=== PATIENT | female | born 1940 | race Caucasian/White ===

== ENCOUNTER → 2017-12-31 | Outpatient (CLI) | payer MEDICARE ==
--- NOTE | 2018-01-01 23:57 | BD ---
EXAMINATION TYPE: MG DEXA axial skeleton. DATE OF EXAM: 12/31/2017 COMPARISON: 04.12.2012 DEXA bone scan. CLINICAL HISTORY: 77 YR OLD FEMALE.....ICD-10 CODE: M81.0 AGE RELATED OSTEOPOROSIS Height: 60 Weight: 135 FRAX RISK QUESTIONS: Alcohol (3 or more units per day): NO Family History (Parent hip fracture): HER MATERNAL AUNT Glucocorticoids (More than 3mos): NO (Ex: prednisone, prednisolone, methylprednisolone, dexamethasone, and hydrocortisone). History of Fracture in Adulthood: YES Secondary Osteoporosis: YES 1. Type 1 Diabetes: NO 2. Hyperthyroidism: NO 3. Menopause before 45: AT 44 4. Malnutrition: NO 5. Chronic liver disease: NO Rheumatoid Arthritis: NO Current Tobacco Use: NO RISK FACTORS HISTORY OF: Spine Fracture: THORACIC SPINE....COMP FX..AT 75 YRS OLD History of Wrist Fracture: RT WRIST AT 73 YRS OLD Surgery to LT HIP REPLACEMENT AT 71 YRS OLD Family History of Osteoporosis: MATERNAL AUNT, WITH BROKEN HIP Active: NOT NOW, SINCE BACK FX Diet low in dairy products/other sources of calcium: YES Postmenopausal woman: HYST AT 44 YRS OLD Take estrogen and/or progesterone medications: IN THE PAST FOR MANY YRS, NONE NOW Lost more than 2 inches in height since high school: NO Hyperparathyroidism: NO Adrenal Insufficiency: NO MEDICATIONS: Osteoporosis Medications: IN PAST MANY DIFF TYPES, LAST TAKEN 2010 Additional Medications: REFLUX MEDS, CALCIUM AND VIT D....ON AND OFF Additional History: OSTEOARTHRITIS, SCOLIOSIS EXAM MEASUREMENTS: Bone mineral densitometry was performed using the [employer] System. Bone mineral density as measured about the Lumbar spine is: ----- L1-L4(G/cm2): 0.961 T Score Values are as follows: ----- L1: -0.8 ----- L2: -1.9 ----- L3: -2.0 ----- L4: -2.5 ----- L1-L4: -1.8 Bone mineral density has: Increased 4.2% since study of: 03.25.2012 Bone mineral density about the R hip (g/cm2): 0.807 T Score values are as follows: -----R Neck: -2.4 ----R Total: -1.6 Bone mineral density has: Decreased -3.5% since study of: 03.25.2012 FRAX%S: THERE IS A 25.0% CHANCE OF A MAJOR OSTEOPOROTIC FX AND A 7.6% FOR HIP FX....PROBABILITY OF FX IN 10 YRS TIME IMPRESSION: Osteopenia (T Score between -2.5 and -1) remains present in right hip and low back. There remains slightly increased risk of fracture and the patient may be considered for treatment. Re-Screen 2-5 years. NOTE: T-SCORE=SD OF THE YOUNG ADULT MEAN.
== END ==
LOC: RADBDWWP 12:24
PROVIDERS: ATTEND Family Medicine
DX: M85.89 Other specified disorders of bone density and structure, multiple sites (principal); M81.0 Age-related osteoporosis without current pathological fracture
CPT/HCPCS: 77080

== ENCOUNTER → 2018-11-09 | Day surgery (SDC) | payer MEDICARE ==
[2018-11-07 09:21] VITALS: BMI 26.4
[~2018-11-09] MED LIST: LACTATED RINGERS 1,000 ML IV SCH; LIDOCAINE 1% 20 ML VIAL (10MG/ML) FOR IV START INTRADERMA PRN; MIDAZOLAM 2 MG/2 ML VIAL ONE; PROPOFOL 10 MG/ML 20 ML VIAL IV ONE; fentaNYL (PF) 50 MCG/ML 2 ML AMP ONE
[2018-11-09 10:43] VITALS: RESP 16; TEMP 97.9
--- NOTE | 2018-11-09 11:56 | P.PCN ---
Date of Procedure: 11/09/18 Procedure(s) Performed: Brief history: Patient is a pleasant 78-year-old white female, scheduled for an elective upper endoscopy as well as colonoscopy as a part of evaluation of GERD and surveillance of long-standing history of Crohn's colitis diagnosed in 1992. She remains in clinical remission. Procedure performed: Esophagogastroduodenoscopy with biopsy Colonoscopy with random biopsies Preoperative diagnosis: GERD Surveillance of uncertain history of Crohn's colitis Anesthesia: MAC Procedure: After informed consent was obtained from the patient was brought into the endoscopy unit and IV sedation was administered by anesthesia under continuous monitoring. Initially upper endoscopy was done. The Olympus GF 160 video endoscope was inserted inserted into the mouth and esophagus intubated without any difficulty and was gradually advanced into the stomach and duodenum and carefully examined. The bulb and second part of the duodenum appeared normal. The scope was then withdrawn into the stomach adequately insufflated with air and upon careful examination the antrum had scattered erosions consistent with gastritis and biopsies were done from this area. The body, cardia and fundus appeared normal. The scope was then withdrawn into the esophagus. The GE junction was located at 34 cm to the incisors. there were linear erosions in the distal esophagus consistent with LA grade B reflux esophagitis. Rest of the esophagus appeared normal. Patient tolerated the procedure well. At this time the patient continued to remain sedation. Initial digital rectal examination was normal. Olympus CF 160 video colonoscope was inserted into the rectum and gradually advanced to the cecum without any difficulty. Careful examination was performed as the scope was gradually being withdrawn. The prep was excellent. The cecum, ascending colon, transverse colon, descending colon, sigmoid colon and rectum appeared normal. Random biopsies were done from the cecum to rectum to rule out dysplasia. Retroflexion was performed in the rectum and no lesions were noted. Patient tolerated the procedure well. Impression: 1. Upper endoscopy revealed antral gastritis and LA grade B reflux esophagitis 2. Colonoscopy was essentially within normal limits with no evidence of colitis or colonic neoplasia. Recommendations: Findings of this examination were discussed with the patient as well as her family. she was advised to follow with the biopsy results. She'll continue with Pepcid 20 mg twice daily and follow antireflux measures. She can have a repeat surveillance colonoscopy in 3-5 years. ]
[2018-11-09 12:23] VITALS: BP 167/84; PULSE 87
== END ==
LOC: ORWHC2ENDO 09:51
PROVIDERS: ATTEND Internal Medicine Gastroenterology
DX: K50.90 Crohn's disease, unspecified, without complications (principal); K29.50 Unspecified chronic gastritis without bleeding; K21.0 Gastro-esophageal reflux disease with esophagitis; Z79.1 Long term (current) use of non-steroidal anti-inflammatories (NSAID); Z79.52 Long term (current) use of systemic steroids; Z91.041 Radiographic dye allergy status
CPT/HCPCS: 88305; 45380; 43239; J2250; J3010; J2704

== ENCOUNTER → 2019-02-16 | Outpatient (CLI) | payer MEDICARE ==
--- NOTE | 2019-02-17 14:51 | MM ---
Reason for exam: screening (asymptomatic). Last mammogram was performed 1 year and 6 months ago. History: Patient is postmenopausal and history of other cancer. Taking estrogen for 19 years 3 months beginning at age 44. Physical Findings: A clinical breast exam by your physician is recommended on an annual basis and results should be correlated with mammographic findings. MG 3D Screening Mammo W/Cad Bilateral CC and MLO view(s) were taken. Prior study comparison: August 13, 2017, bilateral MG 3d screening mammo w/cad. April 19, 2014, right breast MG work up mamm w CAD RT. The breast tissue is heterogeneously dense. This may lower the sensitivity of mammography. Benign appearing bilateral calcifications. No suspicious abnormality. No significant changes when compared with prior studies. ASSESSMENT: Negative, BI-RAD 1 RECOMMENDATION: Routine screening mammogram of both breasts in 1 year.
== END | disposition home or self-care (01) ==
LOC: RADMAMWWP 13:24
PROVIDERS: ATTEND Family Medicine
DX: Z12.31 Encounter for screening mammogram for malignant neoplasm of breast (principal)
CPT/HCPCS: 77063; 77067

== ENCOUNTER → 2021-06-11 | Outpatient (CLI) | payer MEDICARE ==
--- NOTE | 2021-06-12 18:31 | BD ---
EXAMINATION TYPE: Axial Bone Density DATE OF EXAM: 06/11/2021 COMPARISON: 2018 CLINICAL HISTORY: Postmenopausal screening Height: 5 FT 1/2 IN Weight: 142 FRAX RISK QUESTIONS: Alcohol (3 or more units per day): NO Family History (Parent hip fracture): YES Glucocorticoids (More than 3mos): NO (Ex: prednisone, prednisolone, methylprednisolone, dexamethasone, and hydrocortisone). History of Fracture in Adulthood: YES Secondary Osteoporosis: 1. Type 1 Diabetes: NO 2. Hyperthyroidism: NO 3. Menopause before 45: YES 4. Malnutrition: NO 5. Chronic liver disease: NO Rheumatoid Arthritis: NO Current Tobacco Use: NO RISK FACTORS HISTORY OF: History of Wrist Fracture: YES RT When: APPROX 6 YEARS AGO Surgery to Spine/Hip(right/left)/Wrist (right/left): LT HIP REPLACEMENT When: AGE 71 Family History of Osteoporosis: YES Active: NO Diet low in dairy products/other sources of calcium: NO Postmenopausal woman: TOTAL HYST AGE 44 Take estrogen and/or progesterone medications: TOOK HRT FOR MANY YEARS NONE NOW Lost more than 2 inches in height since high school: YES MEDICATIONS: Additional Medications: MESALAMINE,OMEPRAZOLE, TYLENOL Additional History: EXAM MEASUREMENTS: Bone mineral densitometry was performed using the [employer] System. Bone mineral density as measured about the Lumbar spine is: ----- L1-L4(G/cm2): 0.975 T Score Values are as follows: ----- L2: -2.0 ----- L3: -1.8 ----- L4: -2.2 ----- L1-L4: -1.7 Bone mineral density has: INCREASED 2.0 % since study of: 2017 Bone mineral density about the R hip (g/cm2): 0.651 T Score values are as follows: -----R Neck: -2.8 -----R Total: -2.0 Bone mineral density has: DECREASED -6.6 % since study of: 2018 IMPRESSION: Osteoporosis (T Score less than -2.5). There is increased fracture risk and therapy is usually indicated based on age. Re-Screen 1-2 years. NOTE: T-SCORE=SD OF THE YOUNG ADULT MEAN.
--- NOTE | 2021-06-16 10:07 | MM ---
Reason for exam: screening (asymptomatic). Last mammogram was performed 2 years and 4 months ago. History: Patient is postmenopausal and history of other cancer. Taking estrogen for 19 years 3 months beginning at age 44. Physical Findings: A clinical breast exam by your physician is recommended on an annual basis and results should be correlated with mammographic findings. MG 3D Screening Mammo W/Cad Bilateral CC and MLO view(s) were taken. Prior study comparison: February 16, 2019, bilateral MG 3d screening mammo w/cad. August 13, 2017, bilateral MG 3d screening mammo w/cad. April 13, 2014, bilateral MG screening mammo w CAD. There are scattered fibroglandular densities. Central outer right focal asymmetry persists on 3D and is more defined from priors. ASSESSMENT: Incomplete: need additional imaging evaluation, BI-RAD 0 RECOMMENDATION: Special view mammogram of the right breast. (3D) If lesion persists on supplemental views, image directed ultrasound is recommended. [facility] will attempt to contact patient to return for supplemental views and ultrasound if indicated.
== END | disposition home or self-care (01) ==
LOC: RADBDWWP 14:49
PROVIDERS: ATTEND Family Medicine
DX: Z12.31 Encounter for screening mammogram for malignant neoplasm of breast (principal); M81.0 Age-related osteoporosis without current pathological fracture; M85.89 Other specified disorders of bone density and structure, multiple sites; Z78.0 Asymptomatic menopausal state
CPT/HCPCS: 77063; 77067; 77080

== ENCOUNTER → 2021-06-20 | Outpatient (CLI) | payer MEDICARE ==
--- NOTE | 2021-06-24 09:22 | MM ---
Reason for exam: additional evaluation requested from abnormal screening. Last mammogram was performed less than 1 month ago. History: Patient is postmenopausal and history of other cancer. Took estrogen for 19 years 3 months beginning at age 44. Physical Findings: Nurse did not find any significant physical abnormalities on exam. MG 3D Work Up W/Cad RT CC and MLO view(s) were taken of the right breast. Prior study comparison: June 11, 2021, bilateral MG 3d screening mammo w/cad. February 16, 2019, bilateral MG 3d screening mammo w/cad. Finding: There is a 15 mm equal density (isodense) mass in the upper outer quadrant of the right breast. These results were verbally communicated with the patient and result sheet given to the patient on 06/20/21. ASSESSMENT: Incomplete: need additional imaging evaluation, BI-RAD 0 RECOMMENDATION: Ultrasound of the right breast.
--- NOTE | 2021-06-24 09:25 | USB ---
Reason for exam: additional evaluation requested from abnormal screening. History: Patient is postmenopausal and history of other cancer. Took estrogen for 19 years 3 months beginning at age 44. US Breast Workup Limited RT Right limited breast ultrasound including focal area of concern, retroareolar and axilla demonstrates a 0.4 x 0.5 x 0.5cm possible debris within ducts versus other etiology at 9 o'clock and a 0.5 x 0.5 x 0.3cm lymph node at the axilla. These results were verbally communicated with the patient and result sheet given to the patient on 06/20/21. ASSESSMENT: Suspicious, BI-RAD 4 RECOMMENDATION: Surgical consultation and ultrasound core biopsy of the right breast. Called Dr. Imani Lyles's office with mammographic findings and has scheduled an appointment for the patient for 08/13/21 at 4:[address] Lyles. Biopsy scheduled for 07/02/21 at 1:00. PRELIMINARY REPORT CALLED AND FAXED TO DR. LYLES ON 06/24/21.
== END | disposition home or self-care (01) ==
LOC: RADMAMWWP 13:40
PROVIDERS: ATTEND Family Medicine
DX: N63.11 Unspecified lump in the right breast, upper outer quadrant (principal); Z85.89 Personal history of malignant neoplasm of other organs and systems
CPT/HCPCS: 77065; 76642; G0279; 77061

== ENCOUNTER → 2021-07-02 | Day surgery (SDC) | payer MEDICARE ==
[2021-07-02 12:21] VITALS: BP 180/91; PULSE 84; RESP 16; TEMP 98.6
--- NOTE | 2021-07-02 13:41 | USB ---
Discontinued ultrasound biopsy right breast HISTORY: Abnormal mammogram The patient presented for scheduled ultrasound-guided biopsy of the right breast however given multip le elevated blood pressure readings (systolic greater than 190 and diastolic greater than 90) biopsy was discontinued at this time until further management from the patient's primary care physician. IMPRESSION: As above
== END ==
LOC: RADUSWWP 11:52
PROVIDERS: ATTEND Surgery
DX: R92.8 Other abnormal and inconclusive findings on diagnostic imaging of breast (principal); Z53.09 Procedure and treatment not carried out because of other contraindication; R03.0 Elevated blood-pressure reading, without diagnosis of hypertension

== ENCOUNTER → 2021-07-25 | Day surgery (SDC) | payer MEDICARE ==
[2021-07-25 09:50] VITALS: RESP 16
[2021-07-25 11:34] VITALS: BP 161/79; PULSE 86; TEMP 98
--- NOTE | 2021-07-25 11:35 | USB ---
EXAMINATION TYPE: US biopsy breast VAD RT, MG diagnostic mammo RT wo CAD DATE OF EXAM: 07/25/2021 CLINICAL HISTORY: R92.8 ABN MAMMO. TECHNIQUE: Ultrasound guided core biopsy of right breast. COMPARISON: 07/02/2021, 06/20/2021, 06/11/2021 FINDINGS: The procedure of ultrasound guided core biopsy was explained to the patient. Benefits, alternatives, and risks were discussed. An informed consent was then obtained. The patient was placed in supine positioning for imaging and for the procedure. The overlying skin was prepped and draped in usual sterile fashion. Lidocaine buffered with bicarbonate was used as anesthetic into the skin and subcutaneous tissue up to area of concern in the right breast. A dallin was made with surgical scalpel. Under ultrasound guidance, a 12-gauge vacuum assisted biopsy gun device was used to obtain 3 core samples. Following this, a coil-shaped biopsy clip was left in lesion. The patient tolerated the procedure well without any immediate complication. The patient was kept in the radiology department for short stay after the procedure and then discharged home in stable condition. Postprocedure mammogram demonstrates clip in location of previously seen asymmetry. IMPRESSION: Successful, uncomplicated ultrasound guided core biopsy of area of concern in the right breast, full pathology results to follow. Pathology Results: Malignant RIGHT BREAST, NINE O'CLOCK, ULTRASOUND GUIDED NEEDLE CORE BIOPSY: Invasive poorly differentiated ductal carcinoma (Grade 3). See Surgical Pathology Cancer Case Summary and Comment. Recommendation Surgical consult of the right breast. AKOSUA
== END ==
LOC: RADUSWWP 09:30
PROVIDERS: ATTEND Surgery
DX: R92.8 Other abnormal and inconclusive findings on diagnostic imaging of breast (principal)
CPT/HCPCS: 19083; 88305; 88342; 88341; 77065; A4648; J2001

== ENCOUNTER 2021-09-01 08:37 | Day surgery (SDC) | payer MEDICARE ==
[2021-08-28 10:39] VITALS: BMI 27.7
[~2021-09-01 08:37] MED LIST changes: +.fentaNYL (PF) 50 MCG/ML 2 ML AMP IV PRN; +ACETAMINOPHEN TAB 500 MG TAB PO PRN; +ALPRAZolam 0.25 MG TAB PO PRN; +DEXAMETHASONE SOD PHOSPHATE 4 MG/ML 1 ML VIAL IV ONE; +HEPARIN SODIUM,PORCINE/PF 5,000 UNIT/0.5 ML SYRINGE SQ PRN; -LIDOCAINE 1% 20 ML VIAL (10MG/ML) FOR IV START INTRADERMA PRN; -MIDAZOLAM 2 MG/2 ML VIAL ONE; +ONDANSETRON 4 MG/2 ML VIAL IVP ONE; -PROPOFOL 10 MG/ML 20 ML VIAL IV ONE; +Pre Op ABX Message 1 EACH MISC MISCELLANE ONE; -fentaNYL (PF) 50 MCG/ML 2 ML AMP ONE
--- NOTE | 2021-09-01 09:54 | P.HPADDEND ---
H&P Addendum H&P Addendum Date: 09/01/21 Patient here today for right breast lumpectomy. Patient's case was discussed at tumor board. I then spoke with the patient by phone. Patient is agreeable to breast conservation. HER-2/brad FISH studies came back negative. We'll proceed with right breast wire localization lumpectomy with sentinel lymph node biopsy and injection at this time. Risks again reviewed and noted to include but not limited to bleeding, infection, scarring, possible need for further surgeries, seroma, numbness, nerve injury, possible need for axillary node dissection, anticipated need for adjuvant radiation therapy. Patient understands and wishes to proceed.
--- NOTE | 2021-09-01 09:55 | P.NAPBC ---
NAPBC Queries - NAPBC Queries Was patient's case review presented at [facility] tumor board? If no, comment.: Yes Was patient's pathology reviewed at [facility]? If no, comment.: Yes Was breast conservation surgery offered? If no, comment.: Yes Was sentinel node biopsy offered? If no, comment.: Yes Was diagnosis confirmed by percutaneous core biopsy? If no, comment.: Yes Is patient mastectomy patient?: No Was a preop referral to reconstructive surgeon offered?: Yes Clinical Stage: 1
--- NOTE | 2021-09-01 11:02 | NM ---
EXAMINATION TYPE: NM sentinel node injection DATE OF EXAM: 09/01/2021 COMPARISON: NONE HISTORY: Right-sided breast cancer TECHNIQUE AND FINDINGS: The procedure of sentinel lymph node injection was explained to the patient. The benefits, alternatives, and risks were discussed. An informed consent was then obtained. Overlying skin is cleaned with sterile alcohol. Following this, 465 uCi Tc99m Tilmanocept was inject ed in the upper outer aspect of the right nipple intradermally. The patient tolerated the procedure well without any immediate complication. The patient was kept in the radiology department for short stay after the procedure and then taken to surgery for surgical p rocedure what is presumed intraoperative gamma probe will be used for sentinel lymph node detection. IMPRESSION: Right breast radiotracer injection for sentinel node localization as above.
[2021-09-01] MEDS ORDERED: .fentaNYL (PF) 50 MCG/ML 2 ML AMP ONE (11:30)
[2021-09-01] MEDS ORDERED: PROPOFOL 10 MG/ML 20 ML VIAL IV ONE (11:30)
[2021-09-01] MEDS ORDERED: LIDOCAINE 1% INJ 10MG/ML (20 ML MDV) ONE (11:30)
[2021-09-01] MEDS ORDERED: METHYLENE BLUE 50 MG/10 ML AMPUL INJ ONE (11:32)
[2021-09-01] MEDS ORDERED: BUPIVACAIN-EPI 0.25%-1:200,000 30 ML VIAL SQ ONE (11:32)
[2021-09-01] MEDS ORDERED: SODIUM CHLORIDE 0.9% 100 ML with ceFAZolin 2,000 MG IV ONE ×2 (11:58)
[2021-09-01] MEDS ORDERED: BUPIVACAINE (PF) 0.25% 30 ML VIAL SQ ONE (12:22)
[2021-09-01] MEDS ORDERED: traMADol 50 MG TAB PO PRN (12:56)
[2021-09-01] MEDS ORDERED: NALOXONE 0.4 MG/ML 1 ML VIAL IV PRN (12:56)
[2021-09-01 12:59] VITALS: TEMP 96.8
--- NOTE | 2021-09-01 12:59 | P.OP ---
Date of Procedure: 09/01/21 Procedure(s) Performed: PREOPERATIVE DIAGNOSIS: Right breast cancer POSTOPERATIVE DIAGNOSIS: Same PROCEDURE: Right Breast wire localization lumpectomy with sentinel lymph node biopsy SURGEON: Rafal EBL: Minimal ANESTHESIA: General COMPLICATIONS: None OPERATIVE PROCEDURE: Patient was placed on the operating room table in the supine position. 2 mL of methylene blue was injected into the subareolar space. The breast was then massaged for 5 minutes. The breast was prepped and draped in usual sterile fashion. The right axilla was addressed at that time. The hot spot in the right axilla was identified. A small curvilinear incision was made using the scalpel. Dissection down through the subcutaneous tissues took place using electrocautery. Using the neoprobe I identified a total of 2 sentinel lymph nodes. None of these were blue in color. These had benign exam characteristics. These were removed and sent to pathology for permanent sectioning. The surgical site was inspected and no bleeding was seen. The subcutaneous tissues were closed using 3-0 Vicryl sutures. The skin was closed using 4-0 Monocryl sutures. The wire entrance site was then addressed. This was present at the 8:00 location. A curvilinear incision was made adjacent to the wire entrance site. I followed the wire down into the breast tissue. An adequate lumpectomy specimen then took place around the wire. Margins of 1.5-2 cm worth attempted to be achieved. Palpation of the specimen suggested that the superior margin was somewhat close. I took an additional margin superiorly and this margin was painted the appropriate color on the new margin side. The initial specimen was also painted the appropriate 6 colors. Clips were used to identify the lumpectomy cavity. The clip was confirmed to be within the lumpectomy specimen by radiology. The subcutaneous tissues were closed using 3- 0 Vicryl sutures. The skin was closed using a running 4-0 Monocryl stitch. Skin glue was then applied. DISPOSITION: Stable to recovery room
--- NOTE | 2021-09-01 13:06 | USB ---
EXAM: Needle localization with wire placement. CLINICAL HISTORY: Biopsy-proven right-sided breast cancer TECHNIQUE: Needle localization with wire placement and surgical excision of area of concern in the [facility] breast. COMPARISON: Ultrasound-guided biopsy July 25, 2021 and older studies. FINDINGS: The procedure of needle localization with wire placement and than surgical excision was exp lained to the patient. Benefits, alternatives, and risks were discussed. An informed consent was th en obtained. Ultrasound-guided localization was chosen for procedure due to central location on mammogram and prio r ultrasound-guided biopsy. Preprocedure ultrasound redemonstrates subcentimeter irregular hypoechoic lesion in the 9:00 position Zone-A with biopsy clip. The overlying skin was prepped and draped in us ual sterile fashion. Lidocaine is used as anesthetic into the skin and subcutaneous tissue up to the level of area of concern. A 5 cm needle was used. It was placed via ultrasound guidance. After pene trating lesion, wire was placed and the needle was withdrawn. The wire was fixed to patient's skin. Ultrasound images saved for surgeon. The patient tolerated the procedure well without any immediate complication. The patient was kept in the radiology department for short stay after the procedure and then taken to surgery for surgical e xcision. Targeted biopsy clip and wire are identified in specimen mammogram. The patient was kept in hospital for short stay after the procedure and then discharged home in stable condition. IMPRESSION: Successful, uncomplicated needle localization with wire placement and surgical excision o f targeted biopsy clip in the right breast, full pathology results to follow.
[2021-09-01] MEDS ORDERED: LACTATED RINGERS 1,000 ML IV ONE (14:00)
[2021-09-01] MEDS ORDERED: traMADol 50 MG TAB PO ONE (14:16)
[2021-09-01 14:24] VITALS: PULSE 84
[2021-09-01 14:37] VITALS: BP 146/80; RESP 16
== END 2021-09-01 15:03 | disposition home or self-care (01) ==
LOC: OR 08:37
PROVIDERS: ATTEND Surgery
DX: C50.911 Malignant neoplasm of unspecified site of right female breast (principal)
CPT/HCPCS: 19285; 38792; 76098; A9520; J1100; J2405; J0690; Q9968; J1644

== ENCOUNTER 2021-11-14 17:59 | Emergency (ER) | payer MEDICARE ==
[2021-11-14 18:21] VITALS: BP 180/91; PULSE 83; RESP 20; TEMP 97.5
[2021-11-14] MEDS ORDERED: HYDROcodone/APAP 5-325MG 1 EACH TAB PO STA (19:28)
[2021-11-14] MEDS ORDERED: ONDANSETRON ODT 4 MG TAB PO STA (19:28)
--- NOTE | 2021-11-14 19:33 | ED ---
General Adult HPI - General Chief complaint: Fall Stated complaint: Fall,Lt Side Pain Time Seen by Provider: 11/14/21 19:10 Source: patient, RN notes reviewed Mode of arrival: ambulatory Limitations: no limitations - History of Present Illness Initial comments: 81-year-old female presents to the emergency department for evaluation of low back pain and left anterior rib pain. Patient states around 2:30 this afternoon she was getting off a stool when her feet got tangled up and she fell to the ground. Patient states she was experiencing left-sided back pain and left anterior rib pain so she went to urgent care where she had an x-ray showing a compression fracture at L1. States she was instructed to go to the emergency room for further evaluation and treatment. Patient states she did not take anything for pain prior to arrival. Does report left anterior rib pain worsens with deep inspiration. Patient states she has a history of scoliosis and osteoporosis. Denies loss of consciousness, head injury, neck pain, dizziness, headache, lower extremity weakness, loss of bowel or bladder control, foot drop, or saddle anesthesia. - Related Data Home Medications Medication Instructions Recorded Confirmed Mesalamine 2.4 gm PO HS 11/07/18 11/14/21 Calcium Carbonate [Tums] 500 mg PO TID PRN 06/24/21 11/14/21 Omeprazole 20 mg PO Q48H PRN 06/24/21 11/14/21 Metoprolol Succinate [Toprol XL] 50 mg PO DAILY 07/17/21 11/14/21 Acetaminophen [Tylenol Extra 500 mg PO Q6H PRN 08/28/21 11/14/21 Strength] Letrozole 2.5 mg PO DAILY 11/14/21 11/14/21 Previous Rx's Medication Instructions Recorded Lidocaine 5% Patch [Lidoderm 5% 1 patch TOPICAL DAILY #12 patch 11/14/21 Patch] Allergies Allergy/AdvReac Type Severity Reaction Status Date / Time Iodinated Contrast Media Allergy Rash/Hives Verified 11/14/21 20:20 [Iodinated Contrast Media - IV Dye] Review of Systems ROS Statement: Those systems with pertinent positive or pertinent negative responses have been documented in the HPI. ROS Other: All systems not noted in ROS Statement are negative. Past Medical History Past Medical History: Cancer, GERD/Reflux, Hypertension, Osteoarthritis (OA) Additional Past Medical History / Comment(s): crohn's, osteoporosis, skin cancer, right breast cancer. History of Any Multi-Drug Resistant Organisms: None Reported Past Surgical History: Appendectomy, Hysterectomy, Joint Replacement, Tonsillectomy Additional Past Surgical History / Comment(s): sinus, left hip replacement, rhinoplasty Past Anesthesia/Blood Transfusion Reactions: Postoperative Nausea & Vomiting (PONV) Past Psychological History: No Psychological Hx Reported Smoking Status: Never smoker Past Alcohol Use History: Occasional Past Drug Use History: None Reported - Past Family History Sister(s) Family Medical History: Cancer Additional Family Medical History / Comment(s): COLON CANCER General Exam Limitations: no limitations (Well-developed, well-nourished female in no acute distress. Initial temperature 97.5, pulse 83, respirations 20, blood pressure 180/91, pulse ox 97% on room air.) General appearance: alert, in no apparent distress Head exam: Present: atraumatic, normocephalic, normal inspection Neck exam: Present: normal inspection, full ROM. Absent: tenderness, meningismus, lymphadenopathy Respiratory exam: Present: normal lung sounds bilaterally, chest wall tenderness (Tenderness upon palpation of the fifth and sixth ribs between the left midclavicular and mid axillary lines). Absent: respiratory distress, wheezes, rales, rhonchi, stridor Cardiovascular Exam: Present: regular rate, normal rhythm, normal heart sounds. Absent: systolic murmur, diastolic murmur, rubs, gallop, clicks GI/Abdominal exam: Present: soft, normal bowel sounds. Absent: distended, tenderness, guarding, rebound, rigid Back exam: Present: normal inspection, full ROM, paraspinal tenderness (Left- sided thoracic and lumbar paraspinal tenderness). Absent: muscle spasm, vertebral tenderness Neurological exam: Present: alert, oriented X3, CN II-XII intact Psychiatric exam: Present: normal affect, normal mood Skin exam: Present: warm, dry, intact, normal color. Absent: rash Course Vital Signs 11/14/21 18:16 Temperature 97.5 F L Pulse Rate 83 Respiratory 20 Rate Blood Pressure 180/91 O2 Sat by Pulse 97 Oximetry Medical Decision Making - Medical Decision Making 81-year-old female with a past medical history of hypertension and osteoarthritis presents to the emergency department for evaluation of injuries sustained in a fall from a stool this afternoon. She does not take any blood thinning medicines and did not hit her head. Patient does not complain of any neck pain. Upon exam, patient is noted to be guarding the left mid anterior chest wall and has tenderness upon palpation of the fifth and sixth ribs from th e mid clavicular to mid axillary line. There is no crepitus or subcutaneous emphysema palpable. Pain does worsen with inspiration. Also has mild thoracic paraspinal tenderness upon palpation that extends into the lumbar region. Patient was seen at urgent care prior to arrival and had x-rays done that showed an area of concern about L1. CT of the lumbar spine was obtained showing old burst fracture with no acute findings at L1. Findings were reviewed with patient; she had knowledge of this old fracture and had been seen at for this. Patient was given one [place] while present in the emergency department with significant improvement. Lidocaine patch was applied and prescribed. Reviewed importance of mobility and supported deep breathing at length. Advised that patient would likely be more sore tomorrow due to her fall from today. Instructed to follow up with PCP for recheck on Wednesday. Return parameters discussed in detail. Patient and family verbalized understanding and agreed with this plan. This patient's care was discussed with my attending . - Radiology Data Radiology results: report reviewed, image reviewed CT of the lumbar spine without contrast was obtained. Report was reviewed in its entirety. Impression per Dr. Ceron is old burst fracture of the L1 vertebral body stable compared to old exam. Scoliotic deformity. No acute fracture seen. X-ray of the ribs with PA chest was obtained. Report was reviewed in its entirety. Impression per Dr. Ceron is mild dextroscoliosis. No rib fracture seen. Mild atelectasis left lower lung field. Disposition Clinical Impression: Fall, Strain of thoracic back region, Contusion of left chest wall Disposition: HOME SELF-CARE Condition: Stable Instructions (If sedation given, give patient instructions): Fall Prevention for Older Adults (ED), Contusion in Adults (ED), Thoracic Back Strain (ED) Additional Instructions: Deep breathing exercises as discussed: 5 deep breaths followed by 2 minute rest followed by an additional 5 deep breaths while supported with cushion or pillow. Make sure that you are up moving 10 minutes of every hour while awake. Applied lidocaine patch directly to affected area. May take Tylenol if needed for pain. Expect that you will be more sore tomorrow. Called Dr. Lyles's office Wednesday morning to schedule follow-up appointment. Return to the emergency department with any new, worsening, or concerning symptoms. Prescriptions: Lidocaine 5% Patch [Lidoderm 5% Patch] 1 patch TOPICAL DAILY #12 patch Is patient prescribed a controlled substance at d/c from ED?: No Referrals: Imani Lyles MD [Primary Care Provider] - 1-2 days Time of Disposition: 21:48
--- NOTE | 2021-11-14 20:30 | CT ---
EXAMINATION TYPE: CT lumbar spine wo con DATE OF EXAM: 11/14/2021 COMPARISON: 04/01/2016 HISTORY: back pain from fall CT DLP: 823.4 mGycm Automated exposure control for dose reduction was used. There is thoracolumbar dextroscoliosis. There is L1 compression fracture with 75% loss of height. Fra cture stable compared to old exam. No evidence of an acute fracture. There is no lumbar paraspinal ma ss. There is a large cyst lower pole right kidney. There is no evidence of focal bone destruction. IMPRESSION: Old burst fracture of the L1 vertebral body stable compared to old exam. Scoliotic deformity. No acut e fracture seen.
--- NOTE | 2021-11-14 20:35 | XR ---
EXAMINATION TYPE: XR ribs bilat w pa chest xray DATE OF EXAM: 11/14/2021 COMPARISON: NONE HISTORY: Anterior left rib pain TECHNIQUE: 9 views FINDINGS: Heart and mediastinum are normal. There is mild linear density in the left lower lung field . There is no pleural effusion or pneumothorax. There is thoracolumbar dextroscoliosis. No evidence o f a displaced rib fracture. IMPRESSION: Mild dextroscoliosis. No rib fracture seen. Mild atelectasis left lower lung field.
[2021-11-14] MEDS ORDERED: LIDOCAINE 5% PATCH TOPICAL STA (21:21)
== END 2021-11-14 22:04 | disposition home or self-care (01) ==
LOC: EC 17:59
DX: S29.012A Strain of muscle and tendon of back wall of thorax, initial encounter (principal); S20.212A Contusion of left front wall of thorax, initial encounter; I10 Essential (primary) hypertension; K21.9 Gastro-esophageal reflux disease without esophagitis; M19.90 Unspecified osteoarthritis, unspecified site; Z79.899 Other long term (current) drug therapy; W08.XXXA Fall from other furniture, initial encounter
CPT/HCPCS: 71111; 72131; 99284

== ENCOUNTER → 2022-05-19 | Outpatient (CLI) | payer MEDICARE ==
--- NOTE | 2022-05-19 11:21 | MM ---
Reason for Exam: Follow-up at short interval from prior study. Last screening mammogram was performed 12 month(s) ago. Patient History: Menarche at age 12. First Full-Term at age 18. Left ovary removed at age 44. Right ovary removed at age 44. Hysterectomy at age 44. Postmenopausal. Other cancer. Breast cancer, age 81. Estrogen, starting at age 44 for 19 years, 3 months. 09/01/2021, Lumpectomy on the Right side. 09/01/2021, Malignant Core Biopsy on the right side. 07/25/2021, Malignant Core Biopsy on the right side. 2021, Radiation Therapy on the right side. 07/02/2021, US discontinued breast bx RT on the right side. Niece had breast cancer, age 45. Tissue Density: The breast tissue is heterogeneously dense. This may lower the sensitivity of mammography. Findings: Analyzed By CAD. New surgical clips from interval lumpectomy and posttreatment changes in the right breast. Benign-appearing vascular calcifications bilaterally is redemonstrated. There are occasional scattered small benign-appearing round calcifications bilaterally redemonstrated. No suspicious new mass or distortion in either breast. Overall Assessment: Probably benign, BI-RAD 3 Management: Diagnostic Mammogram of the right breast in 6 months. Right-sided mammogram presumed new baseline. Results were given to the patient verbally at the time of exam. Electronically signed and approved by: Lakhwinder Valdez M.D.
== END | disposition home or self-care (01) ==
LOC: RADMAMWWP 10:52
PROVIDERS: ATTEND Surgery
DX: R92.8 Other abnormal and inconclusive findings on diagnostic imaging of breast (principal); Z85.3 Personal history of malignant neoplasm of breast; Z80.3 Family history of malignant neoplasm of breast; Z78.0 Asymptomatic menopausal state; Z98.890 Other specified postprocedural states
CPT/HCPCS: 77066; G0279; 77062

== ENCOUNTER → 2023-06-21 | Outpatient (CLI) | payer MEDICARE ==
--- NOTE | 2023-06-21 13:44 | MM ---
Reason for Exam: Hx of breast cancer, conservation therapy. Last mammogram was performed 1 year(s) and 1 month(s) ago. Patient History: Menarche at age 12. First Full-Term at age 18. Left ovary removed at age 44. Right ovary removed at age 44. Hysterectomy at age 44. Postmenopausal. Breast cancer, right, age 81. Previous chest radiation therapy at age 81. Estrogen, starting at age 44 for 19 years, 3 months. 09/01/2021, Lumpectomy on the Right side. 09/01/2021, Malignant Core Biopsy on the right side. 07/25/2021, Malignant Core Biopsy on the right side. 2021, Radiation Therapy on the right side. 07/02/2021, US discontinued breast bx RT on the right side. Niece had breast cancer, age 45. Prior Study Comparison: 08/13/2017 Bilateral Screening Mammogram, [facility]. 06/11/2021 Bilateral Screening Mammogram, [facility]. 07/25/2021 Right Diagnostic Mammogram, [facility]. 05/19/2022 Bilateral MG 3D diag mammo w/cad DIVYA, [facility]. 11/16/2022 Right MG 3D diag mammo w/cad RT, [facility]. Tissue Density: There are scattered fibroglandular densities. Findings: Analyzed By CAD. Surgical clips in the right breast No new suspicious masses, calcifications or distortions. Overall Assessment: Benign, BI-RAD 2 Management: Screening Mammogram of both breasts in 1 year. Results were given to the patient verbally at the time of exam. Patient should continue monthly self-breast exams. A clinical breast exam by your physician is recommended on an annual basis. This exam should not preclude additional follow-up of suspicious palpable abnormalities. Note on Debby scores and lifetime risk: 1. A Debby score greater than 3% is considered moderate risk. If this is the case, consider specialist referral to assess eligibility for a risk reducing agent. 2. If overall lifetime risk for the development of breast cancer is 20% or higher, the patient may qualify for future screening with alternating mammogram and breast MRI. Electronically signed and approved by: Nicholas Chatman DO
== END | disposition home or self-care (01) ==
LOC: RADMAMWWP 13:13
PROVIDERS: ATTEND Family Medicine
DX: R92.8 Other abnormal and inconclusive findings on diagnostic imaging of breast (principal); Z78.0 Asymptomatic menopausal state; Z80.3 Family history of malignant neoplasm of breast; Z85.3 Personal history of malignant neoplasm of breast
CPT/HCPCS: 77066; G0279; 77062

== ENCOUNTER 2024-04-14 10:55 | Day surgery (SDC) | payer MEDICARE ==
[2024-04-13 10:26] VITALS: BMI 28.1
[~2024-04-14 10:55] MED LIST changes: -.fentaNYL (PF) 50 MCG/ML 2 ML AMP IV PRN; -ACETAMINOPHEN TAB 500 MG TAB PO PRN; -ALPRAZolam 0.25 MG TAB PO PRN; -DEXAMETHASONE SOD PHOSPHATE 4 MG/ML 1 ML VIAL IV ONE; -HEPARIN SODIUM,PORCINE/PF 5,000 UNIT/0.5 ML SYRINGE SQ PRN; -LACTATED RINGERS 1,000 ML IV SCH; +LIDOCAINE 1% (10MG/ML) FOR IV START INTRADERMA PRN; -ONDANSETRON 4 MG/2 ML VIAL IVP ONE; -Pre Op ABX Message 1 EACH MISC MISCELLANE ONE
[2024-04-14] MEDS: IV FLUID CONTINUATION 1,000 ML IV ONE (11:17)
[2024-04-14 11:28] VITALS: TEMP 97.3
[2024-04-14] MEDS: LACTATED RINGERS 1,000 ML IV SCH (11:34)
[2024-04-14] MEDS ORDERED: PROPOFOL 10 MG/ML 20 ML VIAL IV ONE (12:57)
--- NOTE | 2024-04-14 13:24 | P.PCN ---
Date of Procedure: 04/14/24 Procedure(s) Performed: BRIEF HISTORY: Patient is a 83-year-old pleasant white female scheduled for an elective colonoscopy as a part of screening for colon cancer. She does have history of Crohn's colitis diagnosed in 1992. PROCEDURE PERFORMED: Colonoscopy snare polypectomy. PREOPERATIVE DIAGNOSIS: Screening for colon cancer/history of Crohn's colitis. IV sedation per Anesthesia. PROCEDURE: After informed consent was obtained, the patient, was brought into the endoscopy unit. IV sedation was administered by Anesthesia under continuous monitoring. Digital rectal examination was normal. Initially the Olympus CF-160 flexible video colonoscope was then inserted in the rectum, gradually advanced into the sigmoid colon and further advancement was not possible. The scope was removed and a pediatric colonoscopy was then introduced into the rectum and gradually advanced to the hepatic Exa with mild to moderate difficulty and despite multiple attempts I was not able to advance the scope into the cecum. At this time I decided to terminate the procedure and the scope was gently withdrawn. In the hepatic flexure there was a 1 cm polyp that was removed by cold snare polypectomy. Rest of the transverse colon, descending colon, sigmoid colon, and rectum appeared normal. Retroflexion was performed in the rectum and no lesions were seen. The patient tolerated the procedure well. IMPRESSION: 1 cm hepatic flexure polyp in the hepatic Exa s/p cold snare polypectomy Rest of the colon appeared normal with no evidence of active colitis RECOMMENDATIONS: Findings of this examination were discussed with the patient as well as her family. She was advised to follow with the biopsy results. Follow-up in the office in 6 months..
[2024-04-14 13:29] VITALS: RESP 16
[2024-04-14 13:44] VITALS: BP 165/80; PULSE 90
== END 2024-04-14 14:20 | disposition home or self-care (01) ==
LOC: ORWHC2ENDO 10:55
PROVIDERS: ATTEND Internal Medicine Gastroenterology
DX: Z12.11 Encounter for screening for malignant neoplasm of colon (principal); D12.3 Benign neoplasm of transverse colon; K50.90 Crohn's disease, unspecified, without complications; Z87.19 Personal history of other diseases of the digestive system; K21.9 Gastro-esophageal reflux disease without esophagitis; I10 Essential (primary) hypertension; M81.0 Age-related osteoporosis without current pathological fracture; M19.90 Unspecified osteoarthritis, unspecified site; Z91.041 Radiographic dye allergy status; Z85.3 Personal history of malignant neoplasm of breast; Z79.899 Other long term (current) drug therapy; Z79.890 Hormone replacement therapy
CPT/HCPCS: 45385; J2704

== ENCOUNTER → 2024-06-22 | Outpatient (CLI) | payer MEDICARE ==
--- NOTE | 2024-06-23 19:02 | MM ---
Reason for Exam: Screening (asymptomatic). Last screening mammogram was performed 12 month(s) ago. Patient History: Menarche at age 12. First Full-Term at age 18. Left ovary removed at age 44. Right ovary removed at age 44. Hysterectomy at age 44. Postmenopausal. Breast cancer, right, age 81. Previous chest radiation therapy at age 81. Estrogen, starting at age 44 for 19 years, 3 months. 09/01/2021, Lumpectomy on the Right side. 09/01/2021, Malignant Core Biopsy on the right side. 07/25/2021, Malignant Core Biopsy on the right side. 2021, Radiation Therapy on the right side. 07/02/2021, US discontinued breast bx RT on the right side. Niece had breast cancer, age 45. Prior Study Comparison: 05/19/2022 Bilateral MG 3D diag mammo w/cad DIVYA, [facility]. 11/16/2022 Right MG 3D diag mammo w/cad RT, [facility]. 06/21/2023 Bilateral MG 3D diag mammo w/cad DIVYA, [facility]. Tissue Density: There are scattered areas of fibroglandular density. Findings: Analyzed By CAD. Postsurgical and posttreatment change right breast. Benign bilateral vascular calcifications. There is no suspicious group of microcalcifications or new suspicious mass in either breast. Overall Assessment: Benign, BI-RAD 2 Management: Screening Mammogram of both breasts in 1 year. . Patient should continue monthly self-breast exams. A clinical breast exam by your physician is recommended on an annual basis. This exam should not preclude additional follow-up of suspicious palpable abnormalities. [facility], , 06/23/2024 7:00 PM. Electronically signed and approved by: Anil Hill M.D. Radiologist
== END | disposition home or self-care (01) ==
LOC: RADMAMWWP 10:01
PROVIDERS: ATTEND Internal Medicine Hematology & Oncology
CPT/HCPCS: 77063; 77067

== ENCOUNTER 2025-04-07 01:31 | Emergency (ER) | payer MEDICARE ==
--- NOTE | 2025-04-07 01:55 | ED ---
General Adult HPI - General Chief complaint: Weakness Stated complaint: weakness Time Seen by Provider: 04/07/25 01:33 Source: patient, EMS Mode of arrival: EMS Limitations: no limitations - History of Present Illness Initial comments: Dictation was produced using 2,10E+07 dictation software. please excuse any grammatical, word or spelling errors. Chief Complaint: 84-year-old female altered mental status History of Present Illness: Patient is 84-year-old female presents emergency department with altered mental status. Patient brought in by EMS after she was in her car and minimally responsive. It is unclear when patient was last seen normal. Patient denies any complaints. Found to be hypothermic by EMS. Patient not a reliable historian due to mental status. Family Imani was concerned about a stroke The ROS documented in this emergency department record has been reviewed and confirmed by me. Those systems with pertinent positive or negative responses have been documented in the HPI. All other systems are other negative and/or noncontributory. - Related Data Home Medications Medication Instructions Recorded Confirmed Mesalamine 2.4 gm PO HS 11/07/18 04/14/24 Calcium Carbonate [Tums] 500 mg PO TID PRN 06/24/21 04/14/24 Metoprolol Succinate [Toprol XL] 50 mg PO HS 07/17/21 04/14/24 Acetaminophen [Tylenol Extra 500 mg PO Q6H PRN 08/28/21 04/14/24 Strength] Letrozole 2.5 mg PO HS 11/14/21 04/14/24 Alendronate Sodium 70 mg PO WEEKLY 04/13/24 04/14/24 Cholecalciferol [Vitamin D3 (25 50 mcg PO DAILY 04/13/24 04/14/24 Mcg = 1000 Iu)] Hyoscyamine Sulfate [Levsin-Sl] 0.125 mg SL DAILY PRN 04/13/24 04/14/24 Vitamin B 12 2500mcgw/ Folic Acid 1 dose PO DAILY 04/13/24 04/14/24 Vitamin B Complex 1 each PO DAILY 04/13/24 04/14/24 Allergies Allergy/AdvReac Type Severity Reaction Status Date / Time Iodinated Contrast Media Allergy Rash/Hives Verified 04/07/25 01:42 [Iodinated Contrast Media - IV Dye] Review of Systems ROS Statement: Those systems with pertinent positive or pertinent negative responses have been documented in the HPI. ROS Other: All systems not noted in ROS Statement are negative. Past Medical History Past Medical History: Cancer, GERD/Reflux, Hypertension, Memory Impairment, Osteoarthritis (OA) Additional Past Medical History / Comment(s): Chron's, osteoporosis,rt breast CA 2021-received radiation tx History of Any Multi-Drug Resistant Organisms: None Reported Past Surgical History: Appendectomy, Hysterectomy, Joint Replacement, Tonsillectomy Additional Past Surgical History / Comment(s): sinus, left hip replacement,rt breast lumpectomy Past Anesthesia/Blood Transfusion Reactions: Postoperative Nausea & Vomiting (PONV) Additional Past Anesthesia/Blood Transfusion Reaction / Comment(s): no hx blood transfusion Past Psychological History: No Psychological Hx Reported Smoking Status: Never smoker - Past Family History Sister(s) Family Medical History: Cancer Additional Family Medical History / Comment(s): COLON CANCER General Exam - General Exam Comments Initial Comments: PHYSICAL EXAM: General Impression: Alert and oriented x3/4, not in acute distress HEENT: Normocephalic atraumatic, extra-ocular movements intact, pupils equal and reactive to light bilaterally, mucous membranes moist. Cardiovascular: Heart regular rate and rhythm Chest: Able to complete full sentences, no retractions, no tachypnea Abdomen: abdomen soft, non-tender, non-distended, no organomegaly Musculoskeletal: Pulses present and equal in all extremities, no peripheral edema Motor: no focal deficits noted Neurological: CN II-XII grossly intact, no focal motor or sensory deficits noted Skin: Intact with no visualized rashes Psych: Normal affect and mood Limitations: no limitations Course Vital Signs 04/07/25 01:37 Temperature 94.4 F L Pulse Rate 87 Respiratory 19 Rate Blood Pressure 190/94 O2 Sat by Pulse 94 L Oximetry - Reevaluation(s) Reevaluation #1: 04/07/25 02:00 More history obtained from family states that patient was on the toilet was thrown up and having a bowel movement at the same time. States at that time she was having slurred speech. Last normal was her 11:50 PM Procedures - Intubation Sedative: Etomidate Paralytic: Rocuronium Laryngoscope: fiber optic video scope Size: 3 Assist Device Used: fiber optic device ET Tube Size: 7.5 ET Tube Uncuffed: No Tube Secured Depth (cm): 24 Tube Placement Confirmation: visualized tube passing through cords Patient Tolerated Procedure: well Intubation Complications: other (malfunctioning IV) Medical Decision Making - Medical Decision Making Was pt. sent in by a medical professional or institution (, PA, AUTOMATION CONTROL INTEGRATOR, urgent care, hospital, or intermediate...) When possible be specific @ -[No] Did you speak to anyone other than the patient for history (EMS, parent, family, police, friend...)? What history was obtained from this source @ -See above Did you review nursing and triage notes (agree or disagree)? Why? @ -[I reviewed and agree with nursing and triage notes] Were old charts reviewed (outside hosp., previous admission, EMS record, old EKG, old radiological studies, urgent care reports/EKG's, intermediate records)? Report findings @ -[No old charts were reviewed] Differential Diagnosis (chest pain, altered mental status, abdominal pain women, abdominal pain men, vaginal bleeding, musculoskeletal, weakness, fever, dyspnea, syncope, headache, dizziness, GI bleed, back pain, seizure, CVA, palpatations, mental health)? @ -Differential Altered Mental Status: Hypoglycemia, DKA, hypercapnia, ETOH, overdose, CO poisoning, trauma, myxedema coma, HTN encephalopathy, infection, encephalitis, psychosis, intercranial hemorrhage, hepatic encephalopathy, meningitis, CVA, this is not meant to be an all-inclusive list EKG interpreted by me (3pts min.). @ -My EKG interpretation: Ventricular rate 89, sinus rhythm, MI 160, QRS 82, QTc 423. No MI prolongation, no QTC prolongation, no ST or T-wave changes noted. Overall, this EKG is unremarkable X-rays interpreted by me (1pt min.). @ - CT interpreted by me (1pt min.). @ -CT brain CT angiography obtained. CT brain shows large cerebellar hemorrhage with mass effect U/S interpreted by me (1pt. min.). @ -[None done] What testing was considered but not performed or refused? (CT, X-rays, U/S, labs)? Why? @ -[None] What meds were considered but not given or refused? Why? @ -[None] Was smoking cessation discussed for >3mins.? @ -[No] Were there social determinants of health that impacted care today? How? (Homelessness, low income, unemployed, alcoholism, drug addiction, transportation, low edu. Level, literacy, decrease access to med. care, [facility], rehab)? @ -[No] Was there de-escalation of care discussed even if they declined (Discuss DNR or withdrawal of care, Hospice)? DNR status @ -[No] What co-morbidities impacted this encounter? (DM, HTN, Smoking, COPD, CAD, Cancer, CVA, ARF, Chemo, Hep., AIDS, mental health diagnosis, sleep apnea, morbid obesity)? @ -[None] Was patient admitted / discharged? Hospital course, mention meds given and route, prescriptions, significant lab abnormalities, going to OR and other pertinent info. @ -84-year-old female presents with altered mental status. Vital signs upon arrival shows hypothermia 94.4. Blood pressure elevated 190/94. Patient code stroke due to slurred speech mentioned by family. Case discussed with Dr. Gordillo, code stroke neurologist. CT imaging obtained showing large cerebellar hemorrhage. At approximately 2:48 AM patient's mentation began to decrease. She was breathing somnolently. Taken to trauma bay and intubated. Patient showing signs of brain herniation. Patient given mannitol and started on Cardene drip. Patient be transferred to [facility] for further care we do not have neurosurgery at our facility. It was expressed to family that patient's condition is very grim. They do understand that quality of life back to baseline is likely unachievable however at this point they request patient be full code at the moment. Did you discuss the management of the patient with other professionals (professionals i.e. , PA, AUTOMATION CONTROL INTEGRATOR, lab, RT, psych nurse, school social worker, hardware developer, teacher, enforcement officer, assistant case manager)? Give summary @ -See above. Accepting physician is Dr. Leone Was critical care preformed (if so, how long)? @ -Yes, 77 minutes Undiagnosed new problem with uncertain prognosis? @ -[No] Drug Therapy requiring intensive monitoring for toxicity (Heparin, Nitro, Insulin, Cardizem)? @ -[No] Were any procedures done? @ -[No] Diagnosis/symptom? Acute, or Chronic, or Acute on Chronic? Uncomplicated (without systemic symptoms) or Complicated (systemic symptoms)? @ -Cerebellar hemorrhage Side effects of treatment? @ -[No] Exacerbation, Progression, or Severe Exacerbation? @ -[No] Poses a threat to life or bodily function? How? (Chest pain, [place], [place], pneumonia, PE, COPD, DKA, ARF, appy, cholecystitis, CVA, Diverticulitis, Homicidal, Suicidal, threat to staff... and all critical care pts) @ -yes Disposition Clinical Impression: Cerebellar hemorrhage Disposition: OTHER INSTITUTION NOT DEFINED Condition: Critical Referrals: Imani Lyles MD [Primary Care Provider] - 1-2 days Time of Disposition: 02:55 - Out of Hospital Transfer - Req. Specs Out of Hospital Transfer - Requested Specifics: Other Emergency Center ([facility])
[2025-04-07] MEDS: FAMOTIDINE 20 MG/2 ML VIAL IV STA (02:40)
[2025-04-07] MEDS: methylPREDNISolone SOD SUCCI 125 MG/2 ML VIAL IV STA (02:40)
[2025-04-07] MEDS: diphenhydrAMINE 50 MG/ML 1 ML VIAL IVP STA (02:40)
[2025-04-07] MEDS: LACTATED RINGERS 1,000 ML IV SCH (02:41)
--- NOTE | 2025-04-07 02:42 | CT ---
EXAM: CT Head Without Intravenous Contrast CLINICAL HISTORY: ITS.REASON CT Reason: ams TECHNIQUE: Axial computed tomography images of the head/brain without intravenous contrast. CTDI is 48.9 mGy and DLP is 1040.1 mGy-cm. This CT exam was performed using one or more of the following dose reduction techniques: automated exposure control, adjustment of the mA and/or kV according to patient size, and/or use of iterative reconstruction technique. COMPARISON: No relevant prior studies available. FINDINGS: Brain: Severe ischemic microangiopathy. 3.5 x 1.9 x 3.9 cm right cerebellar hemispheric intraparenchymal hemorrhage with associated subarachnoid hemorrhage within the adjacent right cerebellar hemisphere No acute transcortical infarct. Ventricles: Unremarkable. No ventriculomegaly. Bones/joints: Unremarkable. No acute fracture. Soft tissues: Unremarkable. Sinuses: Unremarkable as visualized. No acute sinusitis. Mastoid air cells: Unremarkable as visualized. No mastoid effusion. IMPRESSION: 3.5 x 1.9 x 3.9 cm right cerebellar hemispheric intraparenchymal hemorrhage (13 cc) <MYCVCSECTION> Communications: 04/07/25 02:40 Call Doctor Regarding Intracranial Hemorrhage, called Dr. Juan on 04/07 02:41 (-04:00)
[2025-04-07] MEDS: ETOMIDATE 2 MG/ML 10 ML VIAL IVP STA (02:45)
[2025-04-07] MEDS: ROCURONIUM 10 MG/ML (5 ML VIAL) IV ONE (02:45)
--- NOTE | 2025-04-07 02:47 | CT ---
EXAM: CT Angiography Head With Intravenous Contrast CLINICAL HISTORY: ITS.REASON CT Reason: neurologic defect TECHNIQUE: Axial computed tomographic angiography images of the head with intravenous contrast. CTDI is 12.6 mGy and DLP is 197.75 mGy-cm. This CT exam was performed using one or more of the following dose reduction techniques: automated exposure control, adjustment of the mA and/or kV according to patient size, and/or use of iterative reconstruction technique. MIP reconstructed images were created and reviewed. COMPARISON: No relevant prior studies available. FINDINGS: Right internal carotid artery: No acute findings. Intracranial segment is patent with no significant stenosis. No aneurysm. Right anterior cerebral artery: Unremarkable. No occlusion or significant stenosis. No aneurysm. Right middle cerebral artery: Unremarkable. No occlusion or significant stenosis. No aneurysm. Right posterior cerebral artery: Unremarkable. No occlusion or significant stenosis. No aneurysm. Right vertebral artery: Unremarkable as visualized. Left internal carotid artery: No acute findings. Intracranial segment is patent with no significant stenosis. No aneurysm. Left anterior cerebral artery: Unremarkable. No occlusion or significant stenosis. No aneurysm. Left middle cerebral artery: Unremarkable. No occlusion or significant stenosis. No aneurysm. Left posterior cerebral artery: Unremarkable. No occlusion or significant stenosis. No aneurysm. Left vertebral artery: Unremarkable as visualized. Basilar artery: Unremarkable. No occlusion or significant stenosis. No aneurysm. Brain: Redemonstration of right cerebellar intraparenchymal hemorrhage. IMPRESSION: No acute findings in the arteries of the head/brain. EXAM: CT Angiography Neck With Intravenous Contrast CLINICAL HISTORY: ITS.REASON CT Reason: neurologic defect TECHNIQUE: Routine carotid CT angiography protocol was performed with intravenous contrast. NASCET criteria using the distal ICAs for comparison were used for evaluation of stenoses. CTDI is 12.6 mGy and DLP is 197.75 mGy-cm. This CT exam was performed using one or more of the following dose reduction techniques: automated exposure control, adjustment of the mA and/or kV according to patient size, and/or use of iterative reconstruction technique. MIP reconstructed images were created and reviewed. COMPARISON: None. FINDINGS: VASCULATURE: Right common carotid artery: Unremarkable. No occlusion or significant stenosis. No dissection. Right internal carotid artery: Unremarkable. Extracranial segment is patent with no occlusion or significant stenosis. No dissection. Right external carotid artery: Unremarkable. No occlusion. Right vertebral artery: Unremarkable. No occlusion or significant stenosis. No dissection. Left common carotid artery: Unremarkable. No occlusion or significant stenosis. No dissection. Left internal carotid artery: Unremarkable. Extracranial segment is patent with no occlusion or significant stenosis. No dissection. Left external carotid artery: Unremarkable. No occlusion. Left vertebral artery: Unremarkable. No occlusion or significant stenosis. No dissection. NECK: Bones/joints: Unremarkable. No acute fracture. Soft tissues: Unremarkable. Lung apices: Clear. CAROTID STENOSIS REFERENCE USING NASCET CRITERIA: % ICA stenosis = (1 - narrowest ICA diameter/diameter of distal cervical ICA) x 100. Mild - <50% stenosis. Moderate - 50-69% stenosis. Severe - 70-94% stenosis. Near occlusion - 95-99% stenosis. Occluded - 100% stenosis. IMPRESSION: Negative CTA neck.
[2025-04-07] MEDS: MIDAZOLAM 1 MG/ML 5 ML VIAL IV STA (02:54)
[2025-04-07] MEDS: niCARdipine 20 MG in SODIUM CHLORIDE 0.9% 192 ML IV ONE (03:02)
[2025-04-07] MEDS: MANNITOL 20% IV ONE (03:11)
[2025-04-07] MEDS: SALINE IV ONE (03:11)
[2025-04-07 03:21] LABS: ALT 15 U/L (4-34); AST 26 U/L (14-36); African American GFR (CKD) 75 (>60 ml/min/1.73 sqM); Albumin 4.7 g/dL (3.5-5.0); Alkaline Phosphatase 89 U/L (38-126); Anion Gap 14 mmol/L; Blood Urea Nitrogen 21 mg/dL (7-17); Calcium 9.1 mg/dL (8.4-10.2); Carbon Dioxide 20 mmol/L (22-30); Chloride 106 mmol/L (98-107); Glucose 206 mg/dL (74-99); Magnesium 1.9 mg/dL (1.6-2.3); Non-African American GFR(CKD) 65 (>60 ml/min/1.73 sqM); Potassium 3.5 mmol/L (3.5-5.1); Sodium 140 mmol/L (137-145); Total Protein 7.5 g/dL (6.3-8.2)
[2025-04-07 03:51] LABS: Basophils # (A) 0.06 10*3/uL (0.00-0.10); Basophils % (A) 0.4 %; Eosinophils # (A) 0.29 10*3/uL (0.04-0.35); Eosinophils % (A) 2.0 %; HCT 45.2 % (37.2-46.3); HGB 15.0 g/dL (12.0-15.0); Lymphocytes # (A) 2.06 10*3/uL (0.90-5.00); Lymphocytes % (A) 14.2 %; MCH 29.5 pg (27.0-32.0); MCHC 33.2 g/dL (32.0-37.0); MCV 89.0 fL (80.0-97.0); Monocytes # (A) 0.82 10*3/uL (0.20-1.00); Monocytes % (A) 5.6 %; Neutrophils # (A) 11.19 10*3/uL (1.80-7.70); Neutrophils % (A) 77.1 %; Platelet Count 172 10*3/uL (140-440); RBC 5.08 10*6/uL (4.10-5.20); RDW 13.1 % (11.5-14.5); WBC 14.52 10*3/uL (4.50-10.00)
[2025-04-07 04:08] LABS: Bacteria,Urine Occasional /hpf; Bilirubin,Urine Negative (Negative); Blood,Urine Trace (Negative); Budding Yeast,Urine Rare /hpf; Color,Urine Colorless; Glucose,Urine (UA) 2+ (Negative); Ketones,Urine Trace (Negative); Leukocyte Esterase,Urine Negative (Negative); Nitrite,Urine Negative (Negative); PH, Urine 7.5 (5.0-8.0); Protein,Urine 1+ (Negative); RBC,Urine 8 /hpf (0-5); Specific Gravity,Urine 1.012 (1.001-1.035); Squamous Epithelial Cell,Urine <1 /hpf (0-4); Urobilinogen,Urine <2.0 mg/dL (<2.0); WBC,Urine 7 /hpf (0-5)
[2025-04-07 04:45] LABS: RBC Morphology Normal
[2025-04-07 05:05] VITALS: BP 140/77; PULSE 105; RESP 18; TEMP 35.1
--- NOTE | 2025-04-07 05:44 | XR ---
EXAM: XR Chest, 1 View CLINICAL HISTORY: ITS.REASON XR Reason: Intubation TECHNIQUE: Frontal view of the chest. COMPARISON: made with prior exam dated 11/14/2021 FINDINGS: Lungs: Unremarkable. No consolidation. Pleural space: Unremarkable. No pneumothorax. Heart: Unremarkable. No cardiomegaly. Mediastinum: Unremarkable. Normal mediastinal contour. Bones/joints: Unremarkable. No acute fracture. Tubes, lines and devices: Endotracheal tube seen with its tip above the susanne. Esophageal catheter is present with its tip extending below left hemidiaphragm. IMPRESSION: No acute findings in the chest.
== END 2025-04-07 03:58 | disposition other institution (70) ==
LOC: EC 01:31
DX: I61.4 Nontraumatic intracerebral hemorrhage in cerebellum (principal); Z91.041 Radiographic dye allergy status
CPT/HCPCS: 99291; 96365; 96368; 96375; 31500; 36415; 94002; 93005; 80053; 83605; 83735; 84484; 85025; 81001; 71045; 70496; 70450; 70498; J1200; J2250; J2704; Q9967; J2919; J1308